=== PATIENT | female | born 1980 | race Caucasian/White ===

== ENCOUNTER 2017-01-19 21:46 | Emergency (ER) | payer BC ==
[~2017-01-19] VITALS: Ht 172.7 cm; Wt 77.1 kg
[2017-01-19 22:08] VITALS: BP 130/73
== END 2017-01-19 22:45 | disposition home or self-care (01) ==
LOC: ER 21:55
DX: O9A.211 Injury, poisoning and certain other consequences of external causes complicating pregnancy, first trimester (principal); S91.311A Laceration without foreign body, right foot, initial encounter; Z3A.13 13 weeks gestation of pregnancy; W45.8XXA Other foreign body or object entering through skin, initial encounter; W27.8XXA Contact with other nonpowered hand tool, initial encounter; Y93.89 Activity, other specified; Y92.89 Other specified places as the place of occurrence of the external cause; Y99.8 Other external cause status
CPT/HCPCS: 99283; A4606; A6402; Z7610